=== PATIENT | male | born 1965 ===

== ENCOUNTER 2016-09-07 07:52 | Day surgery (SDC) | payer MEDICAID ==
[2016-08-31 08:19] VITALS: BMI 31.6
[2016-09-07] MEDS ORDERED: HYDROmorphone 0.5 mg/0.5 ml ISec IVP PRN (10:33)
[2016-09-07] MEDS ORDERED: Propofol 10 mg/ml Inj (20 ML) ONE (10:52)
[2016-09-07] MEDS ORDERED: Midazolam 2 MG/2 ML VIAL ONE (10:52)
[2016-09-07] MEDS ORDERED: ceFAZolin IV 1 gm in Dextrose 50 ML IVPB ONE (11:07)
[2016-09-07] MEDS ORDERED: Morphine 4 MG/ML VIAL ONE ×2 (12:00→12:23)
[2016-09-07] MEDS ORDERED: Oxycodone/Acetaminophen 5/325 mg Tab PO PRN (12:44)
--- NOTE | 2016-09-07 12:44 | PCM.SURG1 ---
Surgeon's Initial Post Op Note - Surgeon's Notes Surgeon: Dr. Davila Service Liaison Representative: Dr. Gleason, Dr. Mckoy, Student Doctor Shaun Type of Anesthesia: General LMA Pre-Operative Diagnosis: left inguinal hernia Operative Findings: see operative report Post-Operative Diagnosis: same Operation Performed: open left inguinal hernia repair Specimen/Specimens Removed: hernia sac Estimated Blood Loss: EBL {In ML}: 20 Blood Products Given: N/A Drains Used: No Drains Post-Op Condition: Good Date of Surgery/Procedure: 09/07/16 Time of Surgery/Procedure: 12:44
--- NOTE | 2016-09-07 19:29 | OP ---
PROCEDURE DATE: 09/07/2016 SURGEON: Dr. Davila. TRAFFIC ENUMERATOR: Dr. Gleason and Dr. Mckoy. ANESTHESIA: General, JOINTER SUBMARINE CABLE TJ. PREOPERATIVE DIAGNOSIS: Left inguinal hernia. POSTOPERATIVE DIAGNOSIS: Left inguinal hernia. PROCEDURE: Left inguinal hernia repair. DESCRIPTION OF OPERATION: With the patient in the supine position under adequate general anesthesia, the left groin was prepped and draped in the usual sterile manner. The patient was noted to have bulging at the left groin, not extending to the scrotum, and a transverse incision was made in the left upper groin crease over the area of swelling taken down through the subcutaneous tissue. The hernial mass was noted extending into the subcutaneous tissue, which was divided to identify the external oblique layer and the external oblique was then opened parallel to its fibers from the external inguinal ring to the internal inguinal ring. The spermatic cord and sac were dissected and elevated off the pubic tubercle with a [place] drain and the sac was identified. The sac was opened and noted to contain a large loop of sigmoid colon, which did not appear obstructed or strangulated in any way. The sigmoid colon as well as a moderate amount of epiploic fat was reduced up into the peritoneal cavity with mild difficulty. A portion of the epiploic fat appeared adherent to the distal portion of the sac which may have represented an element of a sliding hernia and this was divided with cautery as the contents were reduced; however, there was no involvement of the sigmoid itself in any sort of a sliding hernia and the colon was completely reduced into the peritoneal cavity. When this had been completed, the sac was dissected off the underlying cord structures. A portion of the distal sac was left adherent to the cord structures. The proximal sac was dissected back to the level of the internal inguinal ring where it was suture ligated with a 2-0 Prolene suture and the sac was amputated. When the hernia had been reduced, the inguinal floor was examined and moderate defect was noted medial to, but in continuity with the internal inguinal ring and the transversalis was developed to identify the edge of the inguinal floor. The inferior border of the shelving edge of the inguinal ligament was also identified. A size large ProLoop plug was then placed in the defect lying easily beneath the inguinal floor and it was sutured beneath the inguinal floor with U-sutures of 2-0 Prolene superiorly to the transversalis fascia and inferiorly to the inguinal ligament. The flat portion of the ProLoop mesh system was then trimmed slightly to approximate the inguinal floor and positioned beneath the spermatic cord, sutured medially to the area of the pubic tubercle and sutured to the transversalis fascia and inguinal ligament using both the previously placed Prolene sutures and additional sutures as needed to completely cover the inguinal floor. When this had been completed, the external oblique was approximated over the cord using running suture of 0 Vicryl, and 3-0 Vicryl sutures were used to approximate the subcutaneous tissue and subcuticular closure was performed with running suture of 4-0 Monocryl and Steri-Strips. Dry sterile dressing was applied. The patient tolerated the procedure well and transferred to recovery room in stable condition. Estimated blood loss for the procedure was 20 mL. Yuli Davila MD cc: [id number] TT: 09/07/2016 19:29:02 jacklyn PATINO
[2016-09-08 16:04] VITALS: BP 119/76; PULSE 79; RESP 19; TEMP 97.3; O2SAT 100
== END 2016-09-07 11:50 | disposition still patient (30) ==
LOC: C.SDS 07:52
PROVIDERS: ATTEND Specialist
DX: K40.90 Unilateral inguinal hernia, without obstruction or gangrene, not specified as recurrent (principal)
CPT/HCPCS: 49507; 82948; 88302; C1781; J0690; J1100; J1885; J2250; J2270; J2405; J2704; J3010